=== PATIENT | male | born 1970 | race Caucasian/White ===

== ENCOUNTER 2022-11-09 04:44 | Day surgery (SDC) | payer OTHER, BC ==
[2022-11-04 14:32] VITALS: BMI 27.6
[2022-11-09] MEDS ORDERED: SIMETHICONE 40 MG/0.6 ML BOTTLE ONE (07:53)
[2022-11-09 08:35] VITALS: TEMP 98.6
[2022-11-09 09:07] VITALS: PULSE 80
[2022-11-09 10:15] VITALS: BP 96/62; RESP 14
== END 2022-11-09 09:43 | disposition home or self-care (01) ==
LOC: JASU-ENDO 04:44
PROVIDERS: ATTEND Internal Medicine Gastroenterology
PROC: 0DBN8ZX Excision of Sigmoid Colon, Via Natural or Artificial Opening Endoscopic, Diagnostic (ICD-10-PCS; principal; 2022-11-09 08:00)
DX: Z12.11 Encounter for screening for malignant neoplasm of colon (principal); D12.5 Benign neoplasm of sigmoid colon
CPT/HCPCS: 88305-TC